=== PATIENT | male | born 1965 | race African-American/Black ===

== ENCOUNTER 2018-01-23 07:27 | Day surgery (SDC) | END 2018-01-23 09:20 | disposition home or self-care (01) ==

== ENCOUNTER 2018-04-10 07:40 | Day surgery (SDC) | END 2018-04-10 13:35 | disposition home or self-care (01) ==

== ENCOUNTER 2019-08-03 15:50 | Emergency (ER) | payer OTHER ==
[~2019-08-03] VITALS: Ht 188 cm; Wt 98.1 kg
[~2019-08-03 15:50] MED LIST: DOXY-214 PO; IBUP-1542 PO; TRAM50TA2 PO
[2019-08-03 16:25] VITALS: Ht 188 cm; Wt 98.1 kg
[2019-08-03] MEDS ORDERED: LIDOCAINE 2% (MDV) 20 ML INJ INJ ONE (18:30)
[2019-08-03 18:54] VITALS: BP 128/75; PULSE 90; RESP 18
== END 2019-08-03 18:56 | disposition home or self-care (01) ==
LOC: FTE 15:50
DX: L02.414 Cutaneous abscess of left upper limb (principal); F17.210 Nicotine dependence, cigarettes, uncomplicated
CPT/HCPCS: 10060; Z7502; Z7610